=== PATIENT | male | born 1975 | race Caucasian/White ===

== ENCOUNTER 2019-01-22 12:09 | Emergency (ER) | payer OTHER ==
[~2019-01-22] VITALS: Ht 182.9 cm; Wt 118.5 kg
[~2019-01-22 12:09] MED LIST: HYDR-4011 PO; IBUP800T48 PO
[2019-01-22 12:13] VITALS: BP 147/82; PULSE 78; RESP 18; Ht 182.9 cm; Wt 118.5 kg
--- NOTE | 2019-01-22 13:35 | ERD ---
ER Documentation Chief Complaint Chief Complaint RIGHT KNEE PAIN X 4 DAYS HPI 43-year-old male is here with right knee pain that is had for 4 days. He denies any injury or trauma. No pain at rest but has pain when he starts to move. He is ambulatory. Is been taking anti-inflammatories at home. No fever. ROS All systems reviewed and are negative except as per history of present illness. Medications Home Meds Active Scripts Hydrocodone/Acetaminophen (Capac 5-325 Tablet) 1 Each Tablet, 1 TAB PO Q6H PRN for PAIN, #15 TAB Prov:JUAN SESAY PA-C 01/22/19 Ibuprofen* (Motrin*) 800 Mg Tab, 800 MG PO Q6, #30 TAB Prov:JUAN SESAY PA-C 01/22/19 FmHx Family History: No diabetes Physical Exam Vitals Vital Signs Date Temp Pulse Resp B/P (MAP) Pulse Ox O2 O2 Flow FiO2 Time Delivery Rate 01/22/19 98.9 78 18 147/82 99 12:13 (103) Physical Exam Const: No acute distress Head: Atraumatic Eyes: Normal Conjunctiva ENT: Normal External Ears, Nose and Mouth. Neck: Full range of motion. No meningismus. Resp: Clear to auscultation bilaterally Cardio: Regular rate and rhythm, no murmurs Lower Extremity -right: Skin: No laceration Compartments: Soft Motor: Full active range of motion hip/knee/ankle/foot Sensation: Intact to light touch FDWS/MF/LF/P surfaces. Bones: Nontender pelvis/knee/proximal tibia/ malleoli/foot Joints: No effusion or laxity Pulses/Perfusion: 2+ DP, Capillary refill < 2 seconds Procedures/MDM Patient has knee pain. No evidence of infection or septic joint. He is neurovascularly intact. No fevers. X-rays show small joint effusion and he was given copy of the results. He was instructed to rice at home. Prescription for ibuprofen and Capac given. Patient counseled regarding my diagnostic impression and care plan. Prior to discharge all questions answered. Pt agrees with treatment plan and understands strict return precautions. Pt is instructed to follow up with primary care provider within 24-48 hours. Precautionary instructions provided including instructions to return to the ER if not improving or for any worsening or changing symptoms or concerns. Departure Diagnosis: Primary Impression: Knee pain Condition: Stable Patient Instructions: Knee Pain, Uncertain Cause Additional Instructions: Call your primary care doctor TOMORROW for an appointment during the next 1-2 days.See the doctor sooner or return here if your condition worsens before your appointment time. JUAN SESAY PA-C Jan 22, 2019 13:35
== END 2019-01-22 13:00 | disposition home or self-care (01) ==
LOC: E/R 12:09
DX: M25.561 Pain in right knee (principal)
CPT/HCPCS: 73562; Z7502